=== PATIENT | male | born 1970 | race Caucasian/White ===

== ENCOUNTER 2022-05-03 17:43 | Outpatient (REF) | payer BC, SELFPAY ==
[2022-05-03 19:49] LABS: Basophils Percent Auto 0.7 % (0.0-3.0); Eosinophils Percent Auto 2.5 % (0.0-7.0); Hematocrit 46.4 % (37.0-53.0); Hemoglobin* 15.3 gm/dL (13.5-17.5); Immature Granulocytes Abs Auto 0.08 K/uL (0.00-0.30); Lymphocytes Percent Auto 26.6 % (20-44); Mean Corpuscular HGB Conc 33 gm/dL (32-36); Mean Corpuscular Hemoglobin 30 pg (26-34); Mean Corpuscular Volume 90 fL (80-100); Monocytes Percent Auto 9.1 % (0.0-11.0); Neutrophils Percent Auto 60.5 % (42.0-72.0); Platelet Count* 354 K/uL (140-440); RDW Coefficient of Variation % 12.2 % (11.5-15.5); Red Blood Count 5.17 m/uL (4.30-5.90); Slide Review Reflex No; White Blood Count* 14.41 K/uL (4.50-11.00)
[2022-05-03 19:51] LABS: Albumin* 5.4 g/dL (3.3-5.0); Chloride* 97 mmol/L (96-114); Potassium* 4.3 mmol/L (3.6-5.1); Sodium* 138 mmol/L (135-149)
[2022-05-03 19:53] LABS: Bilirubin Total* 0.4 mg/dL (0.1-1.5); Creatinine* 1.3 mg/dL (0.5-1.5); Estimated Glomerular Filt Rate 67 ml/min; Iron* 133 ug/dL (49-181)
[2022-05-03 19:54] LABS: Alanine Aminotransferase* 41 U/L (4-50); Alkaline Phosphatase* 99 U/L (40-150); Aspartate Amino Transferase* 30 U/L (12-35); Blood Urea Nitrogen* 20 mg/dL (7-30); Calcium* 9.9 mg/dL (8.4-10.6); Carbon Dioxide* 22 mmol/L (20-32); Glucose* 337 mg/dL (60-115); Total Protein* 8.1 g/dL (6.0-8.3)
[2022-05-03 20:02] LABS: Percent Iron Saturation 34 % (20-50); Total Iron Binding Capacity 394 ug/dL (261-462)
[2022-05-03 20:13] LABS: Vitamin D 25 Hydroxy* 45 ng/mL (30-80)
[2022-05-03 20:14] LABS: Free T4 Free Thyroxine* 1.46 ng/dL (0.70-1.85)
[2022-05-03 20:27] LABS: Thyroid Stimulating Hormone* 0.532 uIU/mL (0.270-4.20)
[2022-05-03 20:43] LABS: Vitamin B12* 579 pg/mL (243-894)
[2022-05-05 19:13] LABS: TPO Antibody 0.3 IU/mL (0.0-9.0); Thyroglobulin Antibody < 0.9 IU/mL (0.0-4.0)
== END 2022-05-03 17:44 | disposition home or self-care (01) ==
LOC: NPINS 17:43
DX: E55.9 Vitamin D deficiency, unspecified (principal); R53.83 Other fatigue
CPT/HCPCS: 80053; 82306; 82607; 82728; 83540; 83550; 84439; 84443; 84481; 85025

== ENCOUNTER 2022-05-03 18:40 | Outpatient (REF) | payer BC, SELFPAY ==
[2022-05-03 21:14] LABS: Basophils Percent Auto 0.8 % (0.0-3.0); Eosinophils Percent Auto 2.6 % (0.0-7.0); Hematocrit 46.6 % (37.0-53.0); Hemoglobin* 15.4 gm/dL (13.5-17.5); Immature Granulocytes Abs Auto 0.03 K/uL (0.00-0.30); Lymphocytes Percent Auto 26.9 % (20-44); Mean Corpuscular HGB Conc 33 gm/dL (32-36); Mean Corpuscular Hemoglobin 30 pg (26-34); Mean Corpuscular Volume 90 fL (80-100); Monocytes Percent Auto 9.8 % (0.0-11.0); Neutrophils Percent Auto 59.7 % (42.0-72.0); Platelet Count* 345 K/uL (140-440); RDW Coefficient of Variation % 12.3 % (11.5-15.5); Red Blood Count 5.17 m/uL (4.30-5.90); White Blood Count* 14.07 K/uL (4.50-11.00)
[2022-05-03 21:15] LABS: Albumin* 5.5 g/dL (3.3-5.0); Chloride* 98 mmol/L (96-114); Sodium* 137 mmol/L (135-149)
[2022-05-03 21:16] LABS: Potassium* 4.3 mmol/L (3.6-5.1)
[2022-05-03 21:18] LABS: Creatinine* 1.3 mg/dL (0.5-1.5); Estimated Glomerular Filt Rate 67 ml/min
[2022-05-03 21:19] LABS: Blood Urea Nitrogen* 21 mg/dL (7-30); Calcium* 9.8 mg/dL (8.4-10.6); Carbon Dioxide* 18 mmol/L (20-32); Glucose* 340 mg/dL (60-115); Phosphorus* 5.7 mg/dL (2.5-4.5)
[2022-05-03 21:25] LABS: Slide Review Reflex No
[2022-05-03 21:50] LABS: Thyroid Stimulating Hormone* 0.521 uIU/mL (0.270-4.20)
[2022-05-03 22:20] LABS: Hemoglobin A1C* 9.18 % (0-5.6)
== END 2022-05-03 18:41 | disposition home or self-care (01) ==
LOC: NPINS 18:40
DX: R53.82 Chronic fatigue, unspecified (principal)
CPT/HCPCS: 80069; 83036; 84443; 85025

== ENCOUNTER 2023-04-13 23:05 | Emergency (ER) | payer BC, SELFPAY ==
[2023-04-13 23:12] VITALS: BP 127/86; PULSE 90; RESP 16; TEMP 36.6; O2SAT 98; BMI 22.1
--- NOTE | 2023-04-13 23:36 | ED.BACK ---
HPI - Back Pain/Injury General Chief Complaint: Back Injury/Pain Stated Complaint: Severe back pain Time Seen by Provider: 04/13/23 23:27 History of Present Illness HPI Narrative: This 53-year-old male has chronic back pain due to a fracture that occurred many years ago. He states that he has been on a fentanyl patch for the past 10 years and is hoping to eventually get off of this medicine. Currently he is using 50 mcg patches every 36 hours. He ran out of these patches and is unable to get his prescription filled for 2 days. He does not take any oral medications and states that he has poor absorption for oral meds. He is considering with his doctor switching to Suboxone. He denies any recent injury or strenuous activity. Related Data Home Medications Medication Instructions Recorded Confirmed albuterol sulfate 90 mcg/actuation g inhalation 06/16/22 06/16/22 aerosol inhaler atomoxetine 25 mg capsule ea PO 06/16/22 06/16/22 azelastine 137 mcg (0.1 %) nasal ml intranasal 06/16/22 06/16/22 spray aerosol buspirone 15 mg tablet 15 mg PO 06/16/22 06/16/22 doxycycline hyclate 100 mg capsule 100 mg PO 06/16/22 06/16/22 escitalopram oxalate 10 mg tablet 10 mg PO 06/16/22 06/16/22 famotidine 40 mg tablet 40 mg PO 06/16/22 06/16/22 fentanyl 75 mcg/hr transdermal 1 patch transdermal 06/16/22 06/16/22 patch folic acid 1 mg tablet 1 mg PO 06/16/22 06/16/22 glipizide 10 mg tablet 10 mg PO 06/16/22 06/16/22 hydroxyzine HCl 25 mg tablet 25 mg PO 06/16/22 06/16/22 ipratropium bromide 42 mcg (0.06 ml intranasal 06/16/22 06/16/22 %) nasal spray levothyroxine 125 mcg tablet 125 mcg PO 06/16/22 06/16/22 (Synthroid) levothyroxine 150 mcg tablet 150 mcg PO 06/16/22 06/16/22 (Synthroid) liothyronine 5 mcg tablet 5 mcg PO 06/16/22 06/16/22 losartan 50 mg tablet 50 mg PO 06/16/22 06/16/22 metformin 850 mg tablet 850 mg PO 06/16/22 06/16/22 ondansetron 4 mg disintegrating 4 mg PO 06/16/22 06/16/22 tablet oxybutynin chloride 5 mg tablet 5 mg PO 06/16/22 06/16/22 pioglitazone 30 mg tablet 30 mg PO 06/16/22 06/16/22 ramelteon 8 mg tablet ea PO 06/16/22 06/16/22 sitagliptin phosphate 100 mg 100 mg PO 06/16/22 06/16/22 tablet (Januvia) sodium bicarbonate 650 mg tablet 650 mg PO 06/16/22 06/16/22 tamsulosin 0.4 mg capsule cap PO 06/16/22 06/16/22 Previous Rx's Medication Instructions Recorded doxycycline hyclate 100 mg capsule 100 mg PO BID #14 caps 06/16/22 Allergies Allergy/AdvReac Type Severity Reaction Status Date / Time Penicillins Allergy Mild Nausea Verified 06/16/22 19:56 gabapentin AdvReac Intermediate Uncoded 04/13/23 23:19 Review of Systems Status of ROS: Reports: 10 or more systems reviewed and unremarkable except as noted in History and below Narrative: Constitutional: No fevers, no weight gain or loss. Eyes: No discharge. No vision changes. HENT: No congestion, no sore throat, no ear pain. Cardiovascular: No chest pain, no palpitations. Respiratory: No shortness of breath, no wheezes, no cough. Gastrointestinal: No abdominal pain, no vomiting, no diarrhea. Genitourinary: No dysuria, no hematuria. Musculoskeletal: Normal range of motion. Chronic back pain. Skin: No rashes, no pruritis. Neurological: No dizziness, weakness, sensory change, speech change. Endo/Heme/Allergies: No bruising or bleeding. No polydipsia. Pysch: no suicidality, no anxiety, no insomnia. All other systems reviewed and are negative. [facility] Medical History (Updated 04/13/23 @ 23:43 by Atilio Garcia MD) Smoker ?F17.200 - Nicotine dependence, unspecified, uncomplicated (ICD-10) Cough ?R05.9 - Cough, unspecified (ICD-10) Social History Smoking Status: Current some day smoker Exam Narrative: Exam Narrative: Constitutional: Well-developed, well-nourished, no acute distress. HEENT: Normocephalic, atraumatic. Neck: Normal range of motion. Nontender. Supple. Heart: Intact distal pulses. Lungs: No chest discomfort. No wheezes, rhonchi, or rales. Abdomen: Nontender. Back: Normal range of motion. Diffuse chronic back pain. Extremities: Normal range of motion. No injury. Skin: Intact. No rash. Warm. No erythema or pallor. Neurologic: No altered sensation. No weakness. Alert and oriented. Psychiatric: No suicidality. No anxiety or depression. No insomnia. Nursing notes and vitals signs are reviewed. Const: Vital Signs, click to edit/add: Vital Signs - 24 hr 04/13/23 23:12 Temperature 97.8 F Pulse Rate [Pulse Oximeter] 90 Respiratory Rate 16 Blood Pressure [Le ft Upper Arm] 127/86 Pulse Oximetry 98 Oxygen Delivery Me thod Room Air Course Vital Signs Vital signs: Initial Vital Signs Temperature 97.8 F 04/13/23 23:12 Temperature Source Temporal Artery Scan 04/13/23 23:12 Pulse Rate 90 04/13/23 23:12 Respiratory Rate 16 04/13/23 23:12 Blood Pressure 127/86 04/13/23 23:12 Blood Pressure Mean 99 04/13/23 23:12 Blood Pressure Position Supine 04/13/23 23:12 Pulse Oximetry 98 04/13/23 23:12 Oxygen Delivery Method Room Air 04/13/23 23:12 Vital Signs Temperature 97.8 F 04/13/23 23:12 Pulse Rate 90 04/13/23 23:12 Respiratory Rate 16 04/13/23 23:12 Blood Pressure 127/86 04/13/23 23:12 Pulse Oximetry 98 04/13/23 23:12 Oxygen Delivery Method Room Air 04/13/23 23:12 Temperature 97.8 F 04/13/23 23:12 Pulse Rate 90 04/13/23 23:12 Respiratory Rate 16 04/13/23 23:12 Blood Pressure 127/86 04/13/23 23:12 Pulse Oximetry 98 04/13/23 23:12 Oxygen Delivery Method Room Air 04/13/23 23:12 MDM - Back Pain/Injury MDM Narrative Medical decision making narrative: This patient has chronic back pain in his been taking fentanyl patches at 50 mcg dosings every 36 hours. He has run out of patches and states that he has a prescription for refill but had some difficulty somehow with the pharmacy getting them refilled until 2 days from now. He does not have any new injury event or strenuous activity that would indicate need for imaging at this time. The patient has severe pain as his main complaint. He is not showing signs of withdrawal symptoms but likely has rebound pain given his long-term use of this medicine. I did agree to provide few tablets of [place] and a 1 time injection of morphine. He understands that he needs to work with his primary physician for ongoing management. Discharge Plan Discharge Clinical Impression: Chronic back pain Condition: Stable Additional Instructions: Take medication as prescribed and needed. Follow up with MD for ongoing management. Prescriptions: No Action ramelteon 8 mg tablet PO Patient Comments: TAKE 1 TABLET BY MOUTH EVERY NIGHT ipratropium bromide 42 mcg (0.06 %) spray,non-aerosol intranasal Patient Comments: USE 2 SPRAYS IN EACH NOSTRIL FOUR TIMES DAILY azelastine 137 mcg (0.1 %) aerosol,spray intranasal fentanyl 75 mcg/hr patch 72 hour 1 patch transdermal Patient Comments: APPLY 1 PATCH TOPICALLY TO THE SKIN EVERY 36 HOURS doxycycline hyclate 100 mg capsule 100 mg PO Patient Comments: TAKE 1 CAPSULE BY MOUTH TWICE DAILY FOR 5 DAYS losartan 50 mg tablet 50 mg PO ondansetron 4 mg tablet,disintegrating 4 mg PO sodium bicarbonate 650 mg tablet 650 mg PO glipizide 10 mg tablet 10 mg PO albuterol sulfate 90 mcg/actuation HFA aerosol inhaler inhalation Patient Comments: INHALE 2 PUFFS BY MOUTH EVERY 4 HOURS NEEDED metformin 850 mg tablet 850 mg PO escitalopram oxalate 10 mg tablet 10 mg PO Patient Comments: TAKE 1 TABLET BY MOUTH EVERY DAY liothyronine 5 mcg tablet 5 mcg PO oxybutynin chloride 5 mg tablet 5 mg PO levothyroxine [Synthroid] 125 mcg tablet 125 mcg PO levothyroxine [Synthroid] 150 mcg tablet 150 mcg PO famotidine 40 mg tablet 40 mg PO tamsulosin 0.4 mg capsule PO atomoxetine 25 mg capsule PO Patient Comments: TAKE 1 CAPSULE BY MOUTH EVERY DAY pioglitazone 30 mg tablet 30 mg PO Januvia 100 mg tablet 100 mg PO hydroxyzine HCl 25 mg tablet 25 mg PO Patient Comments: TAKE 1 TO 2 TABLETS BY MOUTH EVERY 4 HOURS NEEDED buspirone 15 mg tablet 15 mg PO folic acid 1 mg tablet 1 mg PO doxycycline hyclate 100 mg capsule 100 mg PO BID Qty: 14 0RF Follow Up/Referrals: Provider,Not a Local [Primary Care Provider] - Stand Alone Forms: [employer] Info Instructions
[2023-04-13] MEDS: MORPHINE 10 MG/ML inj IM (23:45)
== END 2023-04-13 23:55 | disposition home or self-care (01) ==
PROVIDERS: Emergency Provider Emergency Medicine Emergency Medical Services
DX: M54.9 Dorsalgia, unspecified (principal); G89.29 Other chronic pain
CPT/HCPCS: 96372; 99283; 99284; J2270

== ENCOUNTER 2023-07-29 13:56 | Outpatient (CLI) | payer BC, SELFPAY | END 2023-07-29 13:57 | disposition home or self-care (01) | LOC: AMB 07-31 11:06 | PROVIDERS: Visit Provider Student in an Organized Health Care Education/Training Program | DX: R50.9 Fever, unspecified (principal); Z20.822 Contact with and (suspected) exposure to COVID-19 | CPT/HCPCS: A0425; A0427 ==

== ENCOUNTER 2023-09-02 04:59 | Emergency (ER) | payer BC, SELFPAY ==
[2023-09-02] VITALS (7 sets, daily range): BP systolic 142–164; BP diastolic 79–98; PULSE 75–89; RESP 12–18; TEMP 36.7; O2SAT 91–97; BMI 23.4
--- NOTE | 2023-09-02 05:21 | ED.GENADULT ---
HPI - General Adult General Chief complaint: Back Injury/Pain Stated complaint: Back pain Time Seen by Provider: 09/02/23 05:20 History of Present Illness HPI narrative: threw out back yesterday. covid 6 weeks ago-blood sugars out of control. also worried about his kidney. has not slept in over 24 hours due to pain. reports left and right flank pain and back pain. pain rated 5/10 . 53-year-old man here with complaint of back pain. Has been moving and aggravated his back. Does have a history of chronic back pain but says was tapered off of opiates. History of back injury/fracture. He reports having discussed potential Suboxone with care provider but would prefer not to do this. Sounds as though this was tried at 1 point and not clearly helpful. Generally he does not want to be on opiates he says. Was seen in this department about 4 months ago after a flare of back pain. Appears was given a singular injection of morphine and small quantity of outpatient [place]. Apparently has been since tapered off of opiates. Regarding his back feels that usually if he could just get things to relax, he will be better. Radiating throughout the low back and up his back somewhat as well. Especially on the right low back/flank. No loss of bowel or bladder control. However has been urinating more frequently. Was diagnosed with COVID about 6 weeks ago and since this time blood sugars have been difficult to control. Blood sugars noted to be in 400. Does note a history of kidney stones. He is worried about renal function. Blood sugars have been high since July 28 this last year when he got COVID. Has been in communication with diabetic management team. Anticipates increasing insulin. No shortness of breath. No fever. Related Data Home Medications Medication Instructions Recorded Confirmed albuterol sulfate 90 mcg/actuation g inhalation 06/16/22 06/16/22 aerosol inhaler atomoxetine 25 mg capsule ea PO 06/16/22 06/16/22 azelastine 137 mcg (0.1 %) nasal ml intranasal 06/16/22 06/16/22 spray aerosol buspirone 15 mg tablet 15 mg PO 06/16/22 06/16/22 doxycycline hyclate 100 mg capsule 100 mg PO 06/16/22 06/16/22 escitalopram oxalate 10 mg tablet 10 mg PO 06/16/22 06/16/22 famotidine 40 mg tablet 40 mg PO 06/16/22 06/16/22 fentanyl 75 mcg/hr transdermal 1 patch transdermal 06/16/22 06/16/22 patch folic acid 1 mg tablet 1 mg PO 06/16/22 06/16/22 glipizide 10 mg tablet 10 mg PO 06/16/22 06/16/22 hydroxyzine HCl 25 mg tablet 25 mg PO 06/16/22 06/16/22 ipratropium bromide 42 mcg (0.06 ml intranasal 06/16/22 06/16/22 %) nasal spray levothyroxine 125 mcg tablet 125 mcg PO 06/16/22 06/16/22 (Synthroid) levothyroxine 150 mcg tablet 150 mcg PO 06/16/22 06/16/22 (Synthroid) liothyronine 5 mcg tablet 5 mcg PO 06/16/22 06/16/22 losartan 50 mg tablet 50 mg PO 06/16/22 06/16/22 metformin 850 mg tablet 850 mg PO 06/16/22 06/16/22 ondansetron 4 mg disintegrating 4 mg PO 06/16/22 06/16/22 tablet oxybutynin chloride 5 mg tablet 5 mg PO 06/16/22 06/16/22 pioglitazone 30 mg tablet 30 mg PO 06/16/22 06/16/22 ramelteon 8 mg tablet ea PO 06/16/22 06/16/22 sitagliptin phosphate 100 mg 100 mg PO 06/16/22 06/16/22 tablet (Januvia) sodium bicarbonate 650 mg tablet 650 mg PO 06/16/22 06/16/22 tamsulosin 0.4 mg capsule cap PO 06/16/22 06/16/22 Previous Rx's Medication Instructions Recorded doxycycline hyclate 100 mg capsule 100 mg PO BID #14 caps 06/16/22 Allergies Allergy/AdvReac Type Severity Reaction Status Date / Time Penicillins Allergy Mild Nausea Verified 06/16/22 19:56 gabapentin AdvReac Intermediate Uncoded 04/13/23 23:19 Review of Systems Status of ROS: Reports: 6 or more systems reviewed and unremarkable except as noted in History and below [facility] Medical History Smoker ?F17.200 - Nicotine dependence, unspecified, uncomplicated (ICD-10) Cough ?R05.9 - Cough, unspecified (ICD-10) Social History Smoking Status: Former smoker Second hand tobacco smoke exposure: No How often do you have a drink containing alcohol: never AUDIT-C Alcohol total score: 0 Non-prescribed substance use: denies use Exam Narrative: Exam Narrative: Pleasant. Mildly anxious. I find him standing at the bed side. He is little restless. Cranial nerves 2-12 intact. Winces a little bit in transition. Moving all extremities without difficulty. Well muscled. Lungs are clear. Heart is in regular rate and rhythm. Abdomen is flat soft and nontender. He does not demonstrate a great deal of tenderness palpation of the back but it is generally quite tense in the paraspinal musculature right greater than left low back. I do not smell any ketones. Trace smell of cigarette smoke. Const: Vital Signs, click to edit/add: Vital Signs - 24 hr 09/02/23 05:10 09/02/23 06:56 09/02/23 06:57 Temperature 98.1 F Pulse Rate 76 79 Pulse Rate [Left P ulse Oximeter] 85 Respiratory Rate 18 Blood Pressure 164/98 H Blood Pressure [Ri ght Upper Arm] 146/88 H Pulse Oximetry 96 93 93 Oxygen Delivery Me thod Room Air Documenting provider has reviewed patient's vital signs: yes Course Vital Signs Vital signs: Initial Vital Signs Temperature 98.1 F 09/02/23 05:10 Temperature Source Temporal Artery Scan 09/02/23 05:10 Pulse Rate 85 09/02/23 05:10 Pulse Rhythm Regular 09/02/23 05:10 Respiratory Rate 18 09/02/23 05:10 Blood Pressure 146/88 H 09/02/23 05:10 Blood Pressure Mean 107 H 09/02/23 05:10 Blood Pressure Position Sitting 09/02/23 05:10 Pulse Oximetry 96 09/02/23 05:10 Oxygen Delivery Method Room Air 09/02/23 05:10 Vital Signs Temperature 98.1 F 09/02/23 05:10 Pulse Rate 85 09/02/23 05:10 Respiratory Rate 18 09/02/23 05:10 Blood Pressure 146/88 H 09/02/23 05:10 Pulse Oximetry 96 09/02/23 05:10 Oxygen Delivery Method Room Air 09/02/23 05:10 Temperature 98.1 F 09/02/23 05:10 Pulse Rate 79 09/02/23 08:31 Respiratory Rate 14 09/02/23 08:31 Blood Pressure 156/95 H 09/02/23 08:31 Pulse Oximetry 95 09/02/23 08:31 Oxygen Delivery Method Room Air 09/02/23 05:10 Medications Administered Medications: Discontinued Medications Generic Name Dose Route Start Last Admin Trade Name Criselda PRN Reason Stop Dose Admin Sodium Chloride 1,000 mls @ 1,000 mls/hr 09/02/23 05:48 09/02/23 06:42 0.9 % Sodium Chloride 1000 Ml IV 09/02/23 06:47 Infused .Q1H ONE Infusion Ketorolac Tromethamine 30 mg 09/02/23 05:48 09/02/23 06:00 Ketorolac 30 Mg/Ml Inj IVP 09/02/23 05:49 30 mg ONCE ONE Administration Morphine Sulfate 10 mg 09/02/23 06:43 09/02/23 06:54 Morphine 10 Mg/Ml Inj IM 09/02/23 06:44 10 mg ONCE ONE Administration Medical Decision Making MDM Narrative Medical decision making narrative: It does appear that he is in medical contact regarding his blood sugars. I have a feeling this will be something beyond ability of singular visit in the emergency department to affect. Will evaluate labs for concern of infection and renal function per his concern. Urinalysis looking for potential infection. With reported urination and hyperglycemia, probably is in some degree of dehydration. Will initiate IV fluids. We discussed pain management/settling down his back discomfort and he would like to proceed with the ketorolac in the IV. Labs other than blood sugar of a little over 400 as he noted are generally reassuring. Urinalysis with 3+ glucose but no indication infection otherwise. No ketones. He does admit that his back is still rather sore. We discussed options. He is able to rest here if does receive a singular dose of morphine. Is given 10 mg IM, not IV. Was able to rest in the ER and woke feeling improved. I cannot provide outpatient opiates. Encouraged close follow-up with care providers. Outpatient exercises/stretches. See patient discharge plan Medical Records Medical records reviewed: Yes I reviewed the patient's medical records Lab Data Lab results reviewed: Yes I reviewed the patient's lab results Labs: Lab Results 09/02/23 09/02/23 Range/Units 05:35 06:30 WBC 10.41 (4.50-11.00) K/uL RBC 4.21 L (4.30-5.90) m/uL Hgb 11.9 L (13.5-17.5) gm/dL Hct 36.1 L (37.0-53.0) % MCV 86 (80-100) fL MCH 28 (26-34) pg MCHC 33 (32-36) gm/dL RDW Coeff of Susy 13.3 (11.5-15.5) % Plt Count 215 (140-440) K/uL Neut % (Auto) 60.9 (42.0-72.0) % Lymph % (Auto) 24.7 (20-44) % [place] % (Auto) 11.6 H (0.0-11.0) % Eos % (Auto) 2.1 (0.0-7.0) % Baso % (Auto) 0.4 (0.0-3.0) % Neut # (Auto) 6.34 (1.7-7.0) K/uL Lymph # (Auto) 2.57 (0.90-2.90) K/uL [place] # (Auto) 1.20 H (0.00-0.90) K/UL Eos # (Auto) 0.22 (0.00-0.50) K/uL Baso # (Auto) 0.04 (0.00-0.30) K/uL Abs Immat Gran (auto) 0.03 (0.00-0.30) K/uL Imm/Tot Granulo (auto) 0.3 % Sodium 136 (135-149) mmol/L Potassium 3.6 (3.6-5.1) mmol/L Chloride 101 (96-114) mmol/L Carbon Dioxide 26 (20-32) mmol/L Anion Gap 9 (7-15) mEq/L BUN 18 (7-30) mg/dL Creatinine 1.1 (0.5-1.5) mg/dL Estimated Creat Clear 91.33 Estimated GFR 81 ml/min Glucose 446 H* (60-115) mg/dL Calcium 8.1 L (8.4-10.6) mg/dL C-Reactive Protein < 0.5 L (0.5-1.0) mg/dL Urine Color Yellow (Yellow) Urine Appearance Clear (Clear) Urine pH 7.0 (5.0-8.5) Ur Specific [place] 1.015 (1.000-1.030) Urine Protein Negative (Negative) Urine Glucose (UA) 3+ A (Negative) Urine Ketones Negative (Negative) Urine Blood Negative (Negative) Urine Nitrite Negative (Negative) Urine Bilirubin Negative (Negative) Urine Urobilinogen 0.2 (0.2-1.0) Ur Leukocyte Esterase Negative (Negative) Urine RBC 0-2 (0-2) Urine WBC 0-2 (0-5) Ur Squamous Epith Cells None (None-Few) Urine Bacteria None (None) Discharge Plan Discharge Clinical Impression: Muscle spasm, Back strain, Hyperglycemia Patient Disposition: Home, Self-Care Condition: Improved Additional Instructions: Please stay in close contact with your traffic workforce representative/primary care regarding your blood sugars. Stay active as able. Stretch. Prescriptions: No Action ramelteon 8 mg tablet PO Patient Comments: TAKE 1 TABLET BY MOUTH EVERY NIGHT ipratropium bromide 42 mcg (0.06 %) spray,non-aerosol intranasal Patient Comments: USE 2 SPRAYS IN EACH NOSTRIL FOUR TIMES DAILY azelastine 137 mcg (0.1 %) aerosol,spray intranasal fentanyl 75 mcg/hr patch 72 hour 1 patch transdermal Patient Comments: APPLY 1 PATCH TOPICALLY TO THE SKIN EVERY 36 HOURS doxycycline hyclate 100 mg capsule 100 mg PO Patient Comments: TAKE 1 CAPSULE BY MOUTH TWICE DAILY FOR 5 DAYS losartan 50 mg tablet 50 mg PO ondansetron 4 mg tablet,disintegrating 4 mg PO sodium bicarbonate 650 mg tablet 650 mg PO glipizide 10 mg tablet 10 mg PO albuterol sulfate 90 mcg/actuation HFA aerosol inhaler inhalation Patient Comments: INHALE 2 PUFFS BY MOUTH EVERY 4 HOURS NEEDED metformin 850 mg tablet 850 mg PO escitalopram oxalate 10 mg tablet 10 mg PO Patient Comments: TAKE 1 TABLET BY MOUTH EVERY DAY liothyronine 5 mcg tablet 5 mcg PO oxybutynin chloride 5 mg tablet 5 mg PO levothyroxine [Synthroid] 125 mcg tablet 125 mcg PO levothyroxine [Synthroid] 150 mcg tablet 150 mcg PO famotidine 40 mg tablet 40 mg PO tamsulosin 0.4 mg capsule PO atomoxetine 25 mg capsule PO Patient Comments: TAKE 1 CAPSULE BY MOUTH EVERY DAY pioglitazone 30 mg tablet 30 mg PO Januvia 100 mg tablet 100 mg PO hydroxyzine HCl 25 mg tablet 25 mg PO Patient Comments: TAKE 1 TO 2 TABLETS BY MOUTH EVERY 4 HOURS NEEDED buspirone 15 mg tablet 15 mg PO folic acid 1 mg tablet 1 mg PO doxycycline hyclate 100 mg capsule 100 mg PO BID Qty: 14 0RF Follow Up/Referrals: Provider,Not a Local [Primary Care Provider] - Stand Alone Forms: [facility] Info Instructions
[2023-09-02] MEDS: KETOROLAC 30 MG/ML inj IVP (06:00)
[2023-09-02] MEDS: 0.9 % SODIUM CHLORIDE 1000 ml 1,000 ML IV (06:00)
[2023-09-02 06:52] LABS: Appearance Urine Clear (Clear); Bilirubin Urine Negative (Negative); Blood Urine Negative (Negative); Color Urine Yellow (Yellow); Glucose Urine 3+ (Negative); Ketones Urine Negative (Negative); Leukocyte Esterase Urine Negative (Negative); Nitrite Urine Negative (Negative); Protein Urine Negative (Negative); Specific Gravity Urine 1.015 (1.000-1.030); Urobilinogen Urine 0.2 (0.2-1.0)
[2023-09-02 06:52] LABS: Chloride* 101 mmol/L (96-114); Potassium* 3.6 mmol/L (3.6-5.1); Sodium* 136 mmol/L (135-149)
[2023-09-02] MEDS: MORPHINE 10 MG/ML inj IM (06:54)
[2023-09-02 06:55] LABS: Creatinine* 1.1 mg/dL (0.5-1.5); Est. Creatinine Clearance* 91.33; Estimated Glomerular Filt Rate 81 ml/min
[2023-09-02 06:56] LABS: Anion Gap 9 mEq/L (7-15); Blood Urea Nitrogen* 18 mg/dL (7-30); Calcium* 8.1 mg/dL (8.4-10.6); Carbon Dioxide* 26 mmol/L (20-32)
[2023-09-02 07:10] LABS: C Reactive Protein* < 0.5 mg/dL (0.5-1.0); Glucose* 446 mg/dL (60-115)
--- NOTE | 2023-09-02 07:11 | ED.NURSE ---
Call from lab, critical glucose 446, Dr. Camacho updated.
[2023-09-02 07:45] LABS: Basophils Absolute Auto 0.04 K/uL (0.00-0.30); Basophils Percent Auto 0.4 % (0.0-3.0); Eosinophils Absolute Auto 0.22 K/uL (0.00-0.50); Eosinophils Percent Auto 2.1 % (0.0-7.0); Hematocrit 36.1 % (37.0-53.0); Hemoglobin* 11.9 gm/dL (13.5-17.5); Immature Granulocytes Abs Auto 0.03 K/uL (0.00-0.30); Immature Granulocytes Pct Auto 0.3 %; Lymphocytes Absolute Auto 2.57 K/uL (0.90-2.90); Lymphocytes Percent Auto 24.7 % (20-44); Mean Corpuscular HGB Conc 33 gm/dL (32-36); Mean Corpuscular Hemoglobin 28 pg (26-34); Mean Corpuscular Volume 86 fL (80-100); Monocytes Percent Auto 11.6 % (0.0-11.0); Neutrophils Absolute Auto 6.34 K/uL (1.7-7.0); Neutrophils Percent Auto 60.9 % (42.0-72.0); Platelet Count* 215 K/uL (140-440); RDW Coefficient of Variation % 13.3 % (11.5-15.5); Red Blood Count 4.21 m/uL (4.30-5.90); Slide Review Reflex No; White Blood Count* 10.41 K/uL (4.50-11.00)
[2023-09-02 08:19] LABS: RBC Urine 0-2 (0-2); WBC Urine 0-2 (0-5)
== END 2023-09-02 08:50 | disposition home or self-care (01) ==
PROVIDERS: Emergency Provider Family Medicine
DX: M62.830 Muscle spasm of back (principal); S39.012A Strain of muscle, fascia and tendon of lower back, initial encounter; R73.9 Hyperglycemia, unspecified
CPT/HCPCS: 36415; 80048; 81001; 85025; 86140; 96372; 96374; 99284; J1885; J2270; J7030

== ENCOUNTER 2023-09-03 02:46 | Emergency (ER) | payer BC, SELFPAY ==
[2023-09-03 02:54] VITALS: BP 137/87; PULSE 88; RESP 16; TEMP 36.7; O2SAT 99; BMI 23.8
--- NOTE | 2023-09-03 03:51 | ED_ITS ---
HPI - General Adult General Chief complaint: Back Injury/Pain Stated complaint: Back Pain Time Seen by Provider: 09/03/23 02:47 Source: patient Mode of arrival: ambulatory Limitations: no limitations History of Present Illness HPI narrative: 53-year-old male was evaluated in the emergency department yesterday for back pain. Unfortunately that note is not completed. He reports that he has been packing his home to move and has been having increased pain in his lower back area. This is in the side of a previous fracture from 15 years ago. There is no new trauma or injury. There was no loss of bowel or bladder function, no weakness in his legs. Pain is in the low center of his back, radiates up the spine. He has a history of chronic back pain. He gets his care through [facility] in [place] per his report. We do not have access to any of the records. The [place] prescription monitoring program is unfortunately down and we could not find any records through [employer]. I can see that he has filled prescriptions for Suboxone as recently as 7 weeks ago. When I asked him about his chronic narcotic use, he says that he was previously on fentanyl patches. When I ask specifically about the Suboxone filled in at least May and June, he does seemed genuinely confused. He reports that after some clarification, that he was on these medications but did not find them helpful. He got COVID around the time of stopping the medication in July and had to cancel his pain clinic appointment. He has called to request a new appointment. He has not yet heard back. He says that his provider recommended switching him to methadone at their last inpatient visit, he was afraid of doing this and that may be contributing to why he has not followed up. He denies getting narcotic medication from anyone else and I cannot see any record of having done so. I am uncertain if he was given medication yesterday from our emergency department but do not see record of a prescription transmitted. It does look as though he was given IM morphine. He did drive himself today to the emergency department. Pain is located in the same area as typical for him. No new neurological changes or fevers. No widespread systemic symptoms that are abnormal for him. He did not try taking any medications at home prior to coming to the ED today. Past medical history per his report notable for anxiety, recent COVID, he learns Danlos syndrome. He reports for home medications he treats his hypertension, diabetes, anxiety and thyroid disease. He is no longer on pain medications. Smoker. ROS is notable for the back pain as described above, no new musculoskeletal, neurological or skin changes. Related Data Home Medications Medication Instructions Recorded Confirmed albuterol sulfate 90 mcg/actuation g inhalation 06/16/22 06/16/22 aerosol inhaler atomoxetine 25 mg capsule ea PO 06/16/22 06/16/22 azelastine 137 mcg (0.1 %) nasal ml intranasal 06/16/22 06/16/22 spray aerosol buspirone 15 mg tablet 15 mg PO 06/16/22 06/16/22 doxycycline hyclate 100 mg capsule 100 mg PO 06/16/22 06/16/22 escitalopram oxalate 10 mg tablet 10 mg PO 06/16/22 06/16/22 famotidine 40 mg tablet 40 mg PO 06/16/22 06/16/22 fentanyl 75 mcg/hr transdermal 1 patch transdermal 06/16/22 06/16/22 patch folic acid 1 mg tablet 1 mg PO 06/16/22 06/16/22 glipizide 10 mg tablet 10 mg PO 06/16/22 06/16/22 hydroxyzine HCl 25 mg tablet 25 mg PO 06/16/22 06/16/22 ipratropium bromide 42 mcg (0.06 ml intranasal 06/16/22 06/16/22 %) nasal spray levothyroxine 125 mcg tablet 125 mcg PO 06/16/22 06/16/22 (Synthroid) levothyroxine 150 mcg tablet 150 mcg PO 06/16/22 06/16/22 (Synthroid) liothyronine 5 mcg tablet 5 mcg PO 06/16/22 06/16/22 losartan 50 mg tablet 50 mg PO 06/16/22 06/16/22 metformin 850 mg tablet 850 mg PO 06/16/22 06/16/22 ondansetron 4 mg disintegrating 4 mg PO 06/16/22 06/16/22 tablet oxybutynin chloride 5 mg tablet 5 mg PO 06/16/22 06/16/22 pioglitazone 30 mg tablet 30 mg PO 06/16/22 06/16/22 ramelteon 8 mg tablet ea PO 06/16/22 06/16/22 sitagliptin phosphate 100 mg 100 mg PO 06/16/22 06/16/22 tablet (Januvia) sodium bicarbonate 650 mg tablet 650 mg PO 06/16/22 06/16/22 tamsulosin 0.4 mg capsule cap PO 06/16/22 06/16/22 Previous Rx's Medication Instructions Recorded doxycycline hyclate 100 mg capsule 100 mg PO BID #14 caps 06/16/22 Allergies Allergy/AdvReac Type Severity Reaction Status Date / Time Penicillins Allergy Mild Nausea Verified 06/16/22 19:56 gabapentin AdvReac Intermediate Uncoded 04/13/23 23:19 [facility] Medical History Smoker ?F17.200 - Nicotine dependence, unspecified, uncomplicated (ICD-10) Cough ?R05.9 - Cough, unspecified (ICD-10) Social History Smoking Status: Former smoker Second hand tobacco smoke exposure: No How often do you have a drink containing alcohol: never AUDIT-C Alcohol total score: 0 Non-prescribed substance use: denies use Exam Const: Vital Signs, click to edit/add: Vital Signs - 24 hr 09/03/23 02:54 Temperature 98.1 F Pulse Rate [Pulse Oximeter] 88 Respiratory Rate 16 Blood Pressure [Ri ght Upper Arm] 137/87 Pulse Oximetry 99 Oxygen Delivery Me thod Room Air Documenting provider has reviewed patient's vital signs: yes General appearance: cooperative Other: Friendly. Not exhibiting deceptive behavior. HENMT: Common normals: normocephalic and head/scalp atraumatic Head and scalp: normocephalic and atraumatic Mouth: oral and palatal mucosa normal Eye: Common normals: conjunctivae normal and no scleral icterus Conjunctiva: conjunctiva(e) normal Neck & C-Spine: General: normal visual inspection Resp: Common normals: normal respiratory effort, no use of accessory muscles and clear to auscultation bilaterally Effort & inspection: able to speak in complete sentences Auscultation: clear to auscultation bilaterally Cardio: Common normals: regular rate, regular rhythm, S1 normal heart sound and S2 normal heart sound Rate: regular rate Rhythm: regular rhythm Heart sounds: S1 normal and S2 normal Back & Pelvis: Other: Tenderness to palpation over the lumbar spine and paraspinal muscles but not severe. He can sit up without assistance on the bed and did ambulate into the exam room with an antalgic gait but adequate. He can move his legs freely and at will. No rash bruising or signs of trauma to the back. Extremity: Common normals: normal capillary refill Neuro: Motor exam: no tremor noted and no movement abnormalities noted Psych: Activity/motor behavior: appropriate eye contact Insight: insight good Judgement: judgment good Skin: Common normals: no rashes or lesions noted General skin exam: no rashes or lesions noted Course Course ED Course: Counseled patient that with his recent Suboxone usage, repeat ED visit without initiation of proper outpatient follow-up, I am limited on how I can treat his pain here in the ED. it is not within our Emergency Department scope of practice to treat chronic pain. My license limits me giving him further narcotics. He was understanding and did not exhibit any behavioral conflicts with this discussion. I have given him prescription for Flexeril and Toradol from the vending machine in the lobby. I have counseled him that he needs to follow up with his Pain Clinic and/or primary care provider in the daylight hours later today. I cannot give him IM morphine as the other providers have done and allow him to drive home in the middle of the night. Review Tylenol, Toradol and symptomatic care. He may be a good candidate for gabapentin, this was discussed as well. Alarm symptoms reviewed that would warrant ED presentation. Vital Signs Vital signs: Initial Vital Signs Temperature 98.1 F 09/03/23 02:54 Temperature Source Temporal Artery Scan 09/03/23 02:54 Pulse Rate 88 09/03/23 02:54 Respiratory Rate 16 09/03/23 02:54 Blood Pressure 137/87 09/03/23 02:54 Blood Pressure Mean 103 09/03/23 02:54 Blood Pressure Position Sitting 09/03/23 02:54 Pulse Oximetry 99 09/03/23 02:54 Oxygen Delivery Method Room Air 09/03/23 02:54 Vital Signs Temperature 98.1 F 09/03/23 02:54 Pulse Rate 88 09/03/23 02:54 Respiratory Rate 16 09/03/23 02:54 Blood Pressure 137/87 09/03/23 02:54 Pulse Oximetry 99 09/03/23 02:54 Oxygen Delivery Method Room Air 09/03/23 02:54 Temperature 98.1 F 09/03/23 02:54 Pulse Rate 88 09/03/23 02:54 Respiratory Rate 16 09/03/23 02:54 Blood Pressure 137/87 09/03/23 02:54 Pulse Oximetry 99 09/03/23 02:54 Oxygen Delivery Method Room Air 09/03/23 02:54 Discharge Plan Discharge Clinical Impression: Acute exacerbation of chronic low back pain Patient Disposition: Home, Self-Care Condition: Stable Instructions: Chronic Pain (ED) Additional Instructions: As we discussed, I am sorry that you are having worsening back pain. Because you have been given long-term narcotic medication within the last 8 weeks from a pain clinic, I cannot provide you with narcotic medication. I would encourage you to call your primary physician or pain clinic in the morning for further guidance. The methadone that they are offering may be a good choice for you. I would also strongly encourage you to discuss plans for breakthrough pain with your pain clinic. In the interim, I would recommend Tylenol 1000 mg every 6 hours. I have given you a prescription for Toradol 10 mg up to 4 times daily for the next 5 days as an anti-inflammatory. Do not take additional Aleve or ibuprofen while you are on the Toradol. I have given her prescription for muscle relaxant, Flexeril. You may use up to 20 mg daily. This may cause sedation, often best used at night. Use heat packs, gentle stretches or whatever techniques you have found helpful in the past. Pace yourself with lifting, moving boxes, etc. during your moving process. If you have sudden loss of function of the bowel or bladder, sudden inability to use her legs and or other emergent type symptoms, please come back to the emergency room. Activity Level: Activity as Tolerated Discharge Diet: Regular Prescriptions: No Action ramelteon 8 mg tablet PO Patient Comments: TAKE 1 TABLET BY MOUTH EVERY NIGHT ipratropium bromide 42 mcg (0.06 %) spray,non-aerosol intranasal Patient Comments: USE 2 SPRAYS IN EACH NOSTRIL FOUR TIMES DAILY azelastine 137 mcg (0.1 %) aerosol,spray intranasal fentanyl 75 mcg/hr patch 72 hour 1 patch transdermal Patient Comments: APPLY 1 PATCH TOPICALLY TO THE SKIN EVERY 36 HOURS doxycycline hyclate 100 mg capsule 100 mg PO Patient Comments: TAKE 1 CAPSULE BY MOUTH TWICE DAILY FOR 5 DAYS losartan 50 mg tablet 50 mg PO ondansetron 4 mg tablet,disintegrating 4 mg PO sodium bicarbonate 650 mg tablet 650 mg PO glipizide 10 mg tablet 10 mg PO albuterol sulfate 90 mcg/actuation HFA aerosol inhaler inhalation Patient Comments: INHALE 2 PUFFS BY MOUTH EVERY 4 HOURS NEEDED metformin 850 mg tablet 850 mg PO escitalopram oxalate 10 mg tablet 10 mg PO Patient Comments: TAKE 1 TABLET BY MOUTH EVERY DAY liothyronine 5 mcg tablet 5 mcg PO oxybutynin chloride 5 mg tablet 5 mg PO levothyroxine [Synthroid] 125 mcg tablet 125 mcg PO levothyroxine [Synthroid] 150 mcg tablet 150 mcg PO famotidine 40 mg tablet 40 mg PO tamsulosin 0.4 mg capsule PO atomoxetine 25 mg capsule PO Patient Comments: TAKE 1 CAPSULE BY MOUTH EVERY DAY pioglitazone 30 mg tablet 30 mg PO Januvia 100 mg tablet 100 mg PO hydroxyzine HCl 25 mg tablet 25 mg PO Patient Comments: TAKE 1 TO 2 TABLETS BY MOUTH EVERY 4 HOURS NEEDED buspirone 15 mg tablet 15 mg PO folic acid 1 mg tablet 1 mg PO doxycycline hyclate 100 mg capsule 100 mg PO BID Qty: 14 0RF Follow Up/Referrals: Provider,Not a Local [Primary Care Provider] - Stand Alone [facility] Inst[facility]
== END 2023-09-03 03:40 | disposition home or self-care (01) ==
LOC: ED 03:33
PROVIDERS: Emergency Provider Family Medicine
DX: M54.9 Dorsalgia, unspecified (principal); G89.29 Other chronic pain
CPT/HCPCS: 99283; 99284